=== PATIENT | female | born 1975 | race Two or more races ===

== ENCOUNTER 2016-09-05 14:21 | Emergency (ER) | payer OTHER ==
[~2016-09-05] VITALS: Ht 152.4 cm; Wt 45.4 kg
[~2016-09-05 14:21] MED LIST: ABILIFY2 MG ORAL; DIFLUCAN100 MG ORAL; DIFLUCAN150 MG PO; DILANTIN100 MG ORAL; FLAGYL500 MG ORAL; LORAZEPAM0.5 MG ORAL; METRONIDAZOLE500 MG ORAL
[2016-09-05 15:00] VITALS: BP 114/76
[2016-09-05 15:07] LABS: APPEARANCE,URINE CLEAR; KETONES,URINE NEGATIVE (NEGATIVE); LEUKOCYTE ESTERASE ,URINE 2+ (NEGATIVE); NITRITE,URINE NEGATIVE (NEGATIVE); PH,URINE 6 (4.5-8.0); PROTEIN,URINE 1+ (NEGATIVE); UROBILINOGEN,URINE NORMAL MG/DL (0.0-1.0)
[2016-09-05 15:15] LABS: BACTERIA,URINE FEW /HPF; MUCUS,URINE FEW /LPF (NONE/OCC); RBC,URINE 0-2 /HPF (0 - 2); SQUAMOUS EPITHELIAL CELL,UR FEW /LPF (NONE/OCC)
[2016-09-05] MEDS ORDERED: NITROFURANTOIN100 M2 ORAL (15:24)
[2016-09-05 15:30] VITALS: BP 114/76
--- NOTE | 2016-09-05 18:24 | Emergency Room Report ---
History of Present Illness General Chief Complaint: Female Urogenital Problems Source: Patient Present Illness HPI The patient is a 40-year-old female presenting with dysuria, increased urinary frequency, and white discharge which began one week prior. Patient states the pain is a 10 out of 10 burning which occurs only with urination. The patient denies any abdominal or flank pain. The patient denies other symptoms including nausea, vomiting, fever, chills, hematuria, diarrhea, constipation Allergies: Coded Allergies: MORPHINE (Verified Allergy, Unknown, 10/30/12) CODEINE (Verified Adverse Reaction, Mild, GI UPSET, 10/30/12) Patient History Past Medical History: see triage record Pertinent Family History: none Last Menstrual Period: 3-1 Now: No Reviewed Nursing Documentation: PMH: Agreed, PSxH: Agreed Nursing Documentation-PMH Past Medical History: No History, Except For Hx Asthma: Yes Hx Seizures: Yes Review of Systems All Other Systems: negative except mentioned in HPI Physical Exam Vital Signs Date Time Temp Pulse Resp B/P Pulse Ox O2 Delivery O2 Flow Rate FiO2 09/05/16 14:28 98.1 107 18 114/76 98 Room Air Sp02 EP Interpretation: reviewed, normal General Appearance: no apparent distress, alert, GCS 15, non-toxic Head: normocephalic, atraumatic Eyes: bilateral eye PERRL, bilateral eye normal inspection Gastrointestinal: normal bowel sounds, non tender, soft, non-distended, no guarding, no rebound Rectal: deferred Genitourinary: normal inspection, no CVA tenderness Musculoskeletal: back normal, gait/station normal, normal range of motion, non- tender, calf tenderness Neurologic: alert, oriented x3, responsive, motor strength/tone normal, sensory intact, speech normal Psychiatric: judgement/insight normal, memory normal, mood/affect normal, no suicidal/homicidal ideation Reflexes: 3+ bicep (R), 3+ bicep (L), 3+ tricep (R), 3+ tricep (L), 3+ knee (R) , 3+ knee (L) Skin: normal color, no rash, warm/dry, well hydrated Medical Decision Making PA Attestation Dr. Rooney is my supervising physician. Patient management was discussed with my supervising physician Diagnostic Impression: Primary Impression: Urinary tract infection ER Course The patient is a 40-year-old female presenting with dysuria, increased urinary frequency, and white discharge Differential diagnosis considered but not limited to: UTI, vaginitis, pyelonephritis, pyelonephrosis, PID, ectopic PE: afebrile. NAD. Abdomen: Normal appearance. Non distended. No ecchymosis. Normal BS. Non TTP. No McBurney point tenderness. No guarding. No CVA tenderness UA: There are 5-10 white blood cells with few bacteria. Negative Due to the patient's symptoms and urinalysis, patient will be treated with UTI with a prescription for Macrobid and will follow up with PMD. ER precautions are given Laboratory Tests Test 09/05/16 14:51 Urine Color Pale yellow Urine Appearance Clear Urine pH 6 (4.5-8.0) Urine Specific [place] 1.020 (1.005-1.035) Urine Protein 1+ (NEGATIVE) H Urine Glucose (UA) Negative (NEGATIVE) Urine Ketones Negative (NEGATIVE) Urine Occult Blood Negative (NEGATIVE) Urine Nitrite Negative (NEGATIVE) Urine Bilirubin Negative (NEGATIVE) Urine Urobilinogen Normal MG/DL (0.0-1.0) Urine Leukocyte Esterase 2+ (NEGATIVE) H Urine RBC 0-2 /HPF (0 - 2) Urine WBC 5-10 /HPF (0 - 2) H Urine Squamous Epithelial Cells Few /LPF (NONE/OCC) Urine Bacteria Few /HPF (NONE) Urine Mucus Few /LPF (NONE/OCC) H Urine HCG, Qualitative Negative Lab Results Impression There are 5-10 white blood cells with few bacteria. Negative Last Vital Signs Date Time Temp Pulse Resp B/P Pulse Ox O2 Delivery O2 Flow Rate FiO2 09/05/16 14:28 98.1 107 18 114/76 98 Room Air Status: improved Disposition: HOME, SELF-CARE Condition: Improved Scripts Nitrofurantoin Monohyd/M-Cryst* (MACROBID 100 MG*) 100 Mg Capsule 100 MG ORAL EVERY 12 HOURS, #14 CAP Prov: BOZENA LONG 09/05/16 Patient Instructions: Urinary Tract Infection Additional Instructions: I discussed my findings with the patient. All questions and concerns have been answered. Treatment and medication compliance have been addressed. I advised the patient that they need to follow up with PMD in 3-5 days. Return to ED if symptoms worsen, new symptoms arise, or if needed for any reason. Patient verbalized understanding of discharge instructions. BOZENA LONG Sep 05, 2016 18:24
== END 2016-09-05 15:30 | disposition home or self-care (01) ==
LOC: EMR 14:35
DX: N39.0 Urinary tract infection, site not specified (principal); J45.909 Unspecified asthma, uncomplicated
CPT/HCPCS: 81003; 81025; 99283

== ENCOUNTER 2017-01-17 15:35 | Emergency (ER) | payer OTHER ==
[~2017-01-17] VITALS: Ht 152.4 cm; Wt 45.4 kg
[~2017-01-17 15:35] MED LIST changes: +NITROFURANTOIN100 M2 ORAL
[2017-01-17 16:44] LABS: APPEARANCE,URINE CLEAR; KETONES,URINE 3+ (NEGATIVE); LEUKOCYTE ESTERASE ,URINE 1+ (NEGATIVE); NITRITE,URINE NEGATIVE (NEGATIVE); PH,URINE 6 (4.5-8.0); PROTEIN,URINE 2+ (NEGATIVE); UROBILINOGEN,URINE 1 MG/DL (0.0-1.0)
[2017-01-17 16:58] LABS: BACTERIA,URINE FEW /HPF; RBC,URINE 0-2 /HPF (0 - 2); SQUAMOUS EPITHELIAL CELL,UR FEW /LPF (NONE/OCC)
[2017-01-17 16:59] LABS: MUCUS,URINE FEW /LPF (NONE/OCC)
[2017-01-17 17:17] VITALS: BP 110/76
[2017-01-17] MEDS ORDERED: METRONIDAZOLE500 MG ORAL (17:32)
--- NOTE | 2017-01-17 17:32 | Emergency Room Report ---
History of Present Illness General Chief Complaint: Female Urogenital Problems Present Illness HPI 41-year-old female presents to the emergency department complaining of vaginal discharge with foul odor times one month patient also reports new onset dysuria x3 days. Patient denies fevers or chills. Patient reports recent unprotected intercourse and multiple partners. Patient denies abdominal pain, joint pain or flulike symptoms. Denies rashes or lesions. Denies swollen tender lymph nodes Denies CP, Palpitations, LOC, AMS, dizziness, Changes in Vision, Sensation , paresthesias, or a sudden severe headache. Allergies: Coded Allergies: MORPHINE (Verified Allergy, Unknown, 10/30/12) CODEINE (Verified Adverse Reaction, Mild, GI UPSET, 10/30/12) Patient History Past Medical History: see triage record Past Surgical History: none Pertinent Family History: none Now: No Immunizations: UTD Reviewed Nursing Documentation: PMH: Agreed, PSxH: Agreed Nursing Documentation-PMH Hx Asthma: Yes Hx Seizures: Yes Review of Systems All Other Systems: negative except mentioned in HPI Physical Exam Vital Signs Date Time Temp Pulse Resp B/P Pulse Ox O2 Delivery O2 Flow Rate FiO2 01/17/17 15:51 98.1 122 20 110/76 100 Room Air Sp02 EP Interpretation: reviewed, normal General Appearance: no apparent distress, alert, GCS 15, non-toxic Head: normocephalic, atraumatic Eyes: bilateral eye PERRL, bilateral eye normal inspection ENT: hearing grossly normal, normal pharynx, no angioedema, normal voice Neck: full range of motion, supple/symm/no masses Respiratory: lungs clear, normal breath sounds, speaking full sentences Cardiovascular #1: regular rate, rhythm, no edema Gastrointestinal: normal bowel sounds, non tender, soft, no guarding, no rebound Rectal: deferred Genitourinary: normal inspection, no CVA tenderness, cervix normal, os closed, other - no CMT, adnexal normal. Musculoskeletal: back normal, gait/station normal, normal range of motion, non- tender Neurologic: alert, oriented x3, responsive, motor strength/tone normal, sensory intact, speech normal Psychiatric: judgement/insight normal, memory normal, mood/affect normal Skin: normal color, no rash, warm/dry, well hydrated Lymphatic: no adenopathy Medical Decision Making PA Attestation Dr. Ordaz is my supervising Physician whom patient management has been discussed with. Diagnostic Impression: Primary Impression: Bacterial vaginosis ER Course 41-year-old female presents to the emergency department complaining of vaginal discharge with foul odor times one month patient also reports new onset dysuria x3 days. Patient denies fevers or chills. Patient reports recent unprotected intercourse and multiple partners. Patient denies abdominal pain, joint pain or flulike symptoms. Denies rashes or lesions. Denies swollen tender lymph nodes Denies CP, Palpitations, LOC, AMS, dizziness, Changes in Vision, Sensation , paresthesias, or a sudden severe headache. Ddx considered but are not limited to UTi , STI, G & C, trichomonas, Vaginitis , cervicitis, bartholins gland cyst or cellulitis. Vital signs: are WNL, pt. is afebrile H&PE are most consistent with possible UTI, and vaginal DC. ORDERS: - UA: no evidence of infection - WET MOUNT PREP: bacteria noted, and clue cells, no trich or yeast. ED INTERVENTIONS: -250mg Rocephin IM DISCHARGE: At this time pt. is stable for d/c to home. Will provide printed patient care instructions, and any necessary prescriptions. Care plan and follow up instructions have been discussed with the patient prior to discharge. Labs Test 01/17/17 16:00 Urine Color Yellow Urine Appearance Clear Urine pH 6 (4.5-8.0) Urine Specific [place] 1.020 (1.005-1.035) Urine Protein 2+ (NEGATIVE) Urine Glucose (UA) Negative (NEGATIVE) Urine Ketones 3+ (NEGATIVE) Urine Occult Blood Negative (NEGATIVE) Urine Nitrite Negative (NEGATIVE) Urine Bilirubin Negative (NEGATIVE) Urine Urobilinogen 1 MG/DL (0.0-1.0) Urine Leukocyte Esterase 1+ (NEGATIVE) Urine RBC 0-2 /HPF (0 - 2) Urine WBC 2-4 /HPF (0 - 2) Urine Squamous Epithelial Cells Few /LPF (NONE/OCC) Urine Bacteria Few /HPF (NONE) Urine Mucus Few /LPF (NONE/OCC) Urine HCG, Qualitative Negative Last Vital Signs Date Time Temp Pulse Resp B/P Pulse Ox O2 Delivery O2 Flow Rate FiO2 01/17/17 17:17 98.1 71 20 110/76 100 Room Air Disposition: HOME, SELF-CARE Condition: Stable Scripts Doxycycline Hyclate* (VIBRAMYCIN*) 100 Mg Capsule 100 MG ORAL EVERY 12 HOURS for 7 Days, #14 CAP 0 Refills Prov: Vy Patterson 01/17/17 Metronidazole* (FLAGYL*) 500 Mg Tablet 500 MG ORAL BID for 7 Days, #14 TAB 0 Refills Prov: Vy Patterson 01/17/17 [facility]errals[facility] (PCP) Patient Instructions: Bacterial Vaginosis, [id number] Additional Instructions: Take medications as directed. Follow up with a Primary Care Provider in 3-5 days, even if your symptoms have resolved. --Please review list of primary care clinics, if you do not already have a primary care provider Return sooner to ED if new symptoms occur, or current symptoms become worse. Do not drink alcohol while taking FLAGYL as this will cause a serious skin reaction. - Please note that this Emergency Department Report was dictated using [employer] applications engineer technology software, occasionally this can lead to erroneous entry secondary to interpretation by the dictation equipment. Vy Patterson Jan 17, 2017 17:32
[2017-01-17 17:49] VITALS: BP 110/76
[2017-01-17] MEDS ORDERED: VIBRAMYCIN100 MG ORAL (21:42)
== END 2017-01-17 17:50 | disposition home or self-care (01) ==
LOC: EMR 16:15
DX: N76.0 Acute vaginitis (principal); J45.909 Unspecified asthma, uncomplicated; Z88.6 Allergy status to analgesic agent
CPT/HCPCS: 81003; 81025; 87210; 96372; 99284; J0696

== ENCOUNTER 2018-01-26 19:25 | Emergency (ER) | payer OTHER ==
[~2018-01-26] VITALS: Ht 152.4 cm; Wt 54.0 kg
[~2018-01-26 19:25] MED LIST changes: +VIBRAMYCIN100 MG ORAL
[2018-01-26 19:30] VITALS: BP 138/74
[2018-01-26 19:52] LABS: APPEARANCE,URINE CLEAR; BILIRUBIN, URINE NEGATIVE (NEGATIVE); COLOR,URINE PALE YELLOW; GLUCOSE, URINE (UA) NEGATIVE (NEGATIVE); KETONES,URINE NEGATIVE (NEGATIVE); LEUKOCYTE ESTERASE ,URINE 1+ (NEGATIVE); NITRITE,URINE NEGATIVE (NEGATIVE); PH,URINE 7 (4.5-8.0); PROTEIN,URINE NEGATIVE (NEGATIVE); UROBILINOGEN,URINE NORMAL MG/DL (0.0-1.0)
[2018-01-26] MEDS ORDERED: METRONIDAZOLE500 MG ORAL (20:13)
--- NOTE | 2018-01-26 20:13 | Emergency Room Report ---
History of Present Illness General Chief Complaint: Vaginal Present Illness HPI Pt. presents to the ED c/o vaginal irritation/ discomfort x 1 week. Pt. reports just finishing medication recently that cleared it up , however pt. left toilet paper up inside the vaginal vault for several days and forgot about it, and symptoms returned. Denies abdominal pain, N/V/F/C. denies hematuria or frequency. pt. denies .denies swollen tender lymph nodes. Denies external vaginal lesions. Denies . Allergies: Coded Allergies: MORPHINE (Verified Allergy, Unknown, 10/30/12) CODEINE (Verified Adverse Reaction, Mild, GI UPSET, 10/30/12) Patient History Past Medical History: see triage record Past Surgical History: none Pertinent Family History: none Last Menstrual Period: January 23 Now: No Reviewed Nursing Documentation: PMH: Agreed; PSxH: Agreed Nursing Documentation-PMH Hx Asthma: Yes Hx Seizures: Yes Review of Systems All Other Systems: negative except mentioned in HPI Physical Exam Vital Signs Date Time Temp Pulse Resp B/P (MAP) Pulse Ox O2 Delivery O2 Flow Rate FiO2 01/26/18 19:33 98.4 97 18 108/70 98 Room Air 98.4 Sp02 EP Interpretation: reviewed, normal General Appearance: no apparent distress, alert, GCS 15, non-toxic Head: normocephalic, atraumatic Eyes: bilateral eye normal inspection, bilateral eye PERRL ENT: hearing grossly normal, normal voice Neck: full range of motion Respiratory: chest non-tender, lungs clear, normal breath sounds, speaking full sentences Cardiovascular #1: regular rate, rhythm Gastrointestinal: normal bowel sounds, non tender, soft Rectal: deferred Genitourinary: normal inspection, no CVA tenderness, adnexa normal, cervix normal, ext genitalia/vag normal, other - no CMT, thick white vaginal d/c with odor in vaginal vault. no evidence of retained fb. Musculoskeletal: back normal, gait/station normal, normal range of motion, non- tender Neurologic: alert, oriented x3, responsive, motor strength/tone normal, sensory intact, speech normal, grossly normal Psychiatric: judgement/insight normal Skin: normal color, no rash, warm/dry, well hydrated Lymphatic: no adenopathy Medical Decision Making PA Attestation Dr. Cole is my supervising Physician whom patient management has been discussed with. Diagnostic Impression: Primary Impression: Bacterial vaginosis ER Course Pt. presents to the ED c/o vaginal irritation/ discomfort x 1 week. Pt. reports just finishing medication recently that cleared it up , however pt. left toilet paper up inside the vaginal vault for several days and forgot about it, and symptoms returned. Denies abdominal pain, N/V/F/C. denies hematuria or frequency. pt. denies .denies swollen tender lymph nodes. Denies external vaginal lesions. Denies . Ddx considered but are not limited to UTi , Pyelo, STI, Stone, Cystitis, vaginal laceration, vaginitis. Vital signs: are WNL, pt. is afebrile H& PE are most consistent with: Vaginitis ORDERS: - UA labs are attached : unremarkable - Wet [place] : no yeast, no trich. MODERATE CLUE CELLS ED INTERVENTIONS: -none required at this time. DISCHARGE: At this time pt. is stable for d/c to home. Will provide printed patient care instructions, and any necessary prescriptions. Care plan and follow up instructions have been discussed with the patient prior to discharge. discussed with the patient prior to discharge. Labs Test 01/26/18 19:39 Urine Color Pale yellow Urine Appearance Clear Urine pH 7 (4.5-8.0) Urine Specific [place] 1.005 (1.005-1.035) Urine Protein Negative (NEGATIVE) Urine Glucose (UA) Negative (NEGATIVE) Urine Ketones Negative (NEGATIVE) Urine Occult Blood 1+ (NEGATIVE) Urine Nitrite Negative (NEGATIVE) Urine Bilirubin Negative (NEGATIVE) Urine Urobilinogen Normal MG/DL (0.0-1.0) Urine Leukocyte Esterase 1+ (NEGATIVE) Urine RBC 0-2 /HPF (0 - 2) Urine WBC 0-2 /HPF (0 - 2) Urine Squamous Epithelial Cells Few /LPF (NONE/OCC) Urine Bacteria Moderate /HPF (NONE) Urine HCG, Qualitative Negative (NEGATIVE) Last Vital Signs Date Time Temp Pulse Resp B/P (MAP) Pulse Ox O2 Delivery O2 Flow Rate FiO2 01/26/18 19:33 98.4 97 18 108/70 98 Room Air 98.4 Disposition: HOME, SELF-CARE Condition: Stable Scripts Metronidazole* (FLAGYL*) 500 Mg Tablet 500 MG ORAL BID for 7 Days, #14 TAB 0 Refills Prov: Vy Patterson 01/26/18 Referrals: [facility] (PCP) Patient Instructions: Bacterial Vaginosis Additional Instructions: Take medications as directed. Follow up with a GYNOCOLOGIST within 3-5 days, even if your symptoms have resolved. Return sooner to ED if new symptoms occur, or current symptoms become worse. - Please note that this Emergency Department Report was dictated using [employer] merchant technology software, occasionally this can lead to erroneous entry secondary to interpretation by the dictation equipment. Vy Patterson Jan 26, 2018 20:13
[2018-01-26 20:15] VITALS: BP 108/70
== END 2018-01-26 20:15 | disposition home or self-care (01) ==
LOC: EMR 19:53
DX: N76.0 Acute vaginitis (principal); J45.909 Unspecified asthma, uncomplicated
CPT/HCPCS: 81003; 81025; 87086; 87210; 99283

== ENCOUNTER 2018-02-26 03:03 | Emergency (ER) | payer OTHER ==
[~2018-02-26] VITALS: Ht 160 cm; Wt 54.4 kg
[2018-02-26 03:15] VITALS: BP 112/68
--- NOTE | 2018-02-26 03:15 | Emergency Room Report ---
History of Present Illness General Chief Complaint: To Be Triaged Source: Patient Present Illness HPI Is a 42-year-old female with no significant past medical history except for anemia. She presents with chief complaint of bedbugs bite. She said she is itching all over. She said she's also bedbugs while staying at a hotel in [place]. She said she took a picture but said she deleted. She is itching to her back and leg. No fever chills but no nausea no vomiting. His been ongoing for last couple days. Also thing that she may be . Denies any other complaint. Allergies: Coded Allergies: MORPHINE (Verified Allergy, Unknown, 10/30/12) CODEINE (Verified Adverse Reaction, Mild, GI UPSET, 10/30/12) Patient History Past Medical History: see triage record, old chart reviewed Past Surgical History: other Pertinent Family History: none Social History: Reports: smoking Now: No Immunizations: other Reviewed Nursing Documentation: PMH: Agreed; PSxH: Agreed Nursing Documentation-PMH Hx Asthma: Yes Hx Seizures: Yes Review of Systems Eye: Denies: eye pain, blurred vision ENT: Denies: ear pain, nose congestion, throat swelling Respiratory: Denies: cough, shortness of breath Cardiovascular: Denies: chest pain, palpitations Gastrointestinal: Denies: abdominal pain, diarrhea, nausea, vomiting Musculoskeletal: Denies: back pain, joint pain Skin: Denies: rash Neurological: Denies: headache, numbness Endocrine: Denies: increased thirst, increased urine Hematologic/Lymphatic: Denies: easy bruising All Other Systems: negative except mentioned in HPI Physical Exam vitals normal Sp02 EP Interpretation: reviewed, normal General Appearance: well appearing, no apparent distress, alert Head: normocephalic, atraumatic Eyes: bilateral eye PERRL, bilateral eye EOMI ENT: hearing grossly normal, normal pharynx Neck: full range of motion, supple, no meningismus Respiratory: chest non-tender, lungs clear, normal breath sounds Cardiovascular #1: regular rate, rhythm, no murmur Gastrointestinal: normal bowel sounds, non tender, no mass, no organomegaly, no bruit, non-distended Musculoskeletal: back normal, gait/station normal, normal range of motion Neurologic: alert, oriented x3 Psychiatric: mood/affect normal Skin: warm/dry, other - I see no rash to indicate bedbug bites Medical Decision Making Diagnostic Impression: Primary Impression: Methamphetamine abuse Additional Impressions: Delusions of parasitosis UTI (urinary tract infection) Qualified Codes: N30.00 - Acute cystitis without hematuria ER Course Patient presents with chief complaint of bedbugs. 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 She is comfortable. No evidence of any bacterial infection other than her urine. We'll discharge home. Not . Status: improved Disposition: HOME, SELF-CARE Condition: Stable Scripts Nitrofurantoin Monohyd/M-Cryst (Nitrofurantoin Dent-Mcr 100 mg) 100 Mg Capsule 100 MG ORAL Q12H, #14 CAP Prov: DENNIS HOFF M.D. 02/26/18 Additional Instructions: Stop using drugs. Go to rehabilitation. Follow-up with your doctor in 7 days. Return if worse. DENNIS HOFF M.D. Feb 26, 2018 03:15
[2018-02-26 03:26] LABS: APPEARANCE,URINE CLEAR; BILIRUBIN, URINE NEGATIVE (NEGATIVE); COLOR,URINE PALE YELLOW; GLUCOSE, URINE (UA) NEGATIVE (NEGATIVE); KETONES,URINE NEGATIVE (NEGATIVE); LEUKOCYTE ESTERASE ,URINE 1+ (NEGATIVE); NITRITE,URINE NEGATIVE (NEGATIVE); PH,URINE 6 (4.5-8.0); PROTEIN,URINE NEGATIVE (NEGATIVE); UROBILINOGEN,URINE NORMAL MG/DL (0.0-1.0)
[2018-02-26] MEDS ORDERED: MACROBID100 MG ORAL (03:42)
[2018-02-26 03:47] VITALS: BP 112/68
== END 2018-02-26 03:53 | disposition home or self-care (01) ==
LOC: EMR 03:17
DX: F22 Delusional disorders (principal); N39.0 Urinary tract infection, site not specified
CPT/HCPCS: 80307; 81003; 81025; 99283

== ENCOUNTER 2018-11-14 14:51 | Emergency (ER) | payer MEDICAID, OTHER ==
[~2018-11-14] VITALS: Ht 152.4 cm; Wt 54.9 kg
[~2018-11-14 14:51] MED LIST changes: +MACROBID100 MG ORAL
--- NOTE | 2018-11-14 14:55 | NUR ---
ED Nurse Note: pt refused to be triage and went to admiting dept.
--- NOTE | 2018-11-14 15:44 | NUR ---
ED Nurse Note: received a patient in the room.
--- NOTE | 2018-11-14 15:44 | NUR ---
ED Nurse Note: Patient walked into ED c/o abdominal pain and headache for 1 day. denies n/v. patient reported use of meth and drinking 2 hogan ago. paitent is alert awake x4 ambulatory breathing unlabored and even.
--- NOTE | 2018-11-14 15:50 | NUR ---
ED Nurse Note: urine sent to lab
[2018-11-14 16:00] VITALS: BP 149/99
[2018-11-14] MEDS ORDERED: Lidocaine 2% Visc 15ml soln ORAL ONE (16:00)
[2018-11-14] MEDS ORDERED: Mylanta II UD 30ml ORAL ONE (16:00)
[2018-11-14] MEDS ORDERED: Dicyclomine HCl 10mg/5ml oral soln ORAL ONE (16:00)
[2018-11-14] MEDS ORDERED: Acetaminophen 500mg (ES) tab ORAL ONE (16:00)
[2018-11-14 16:04] LABS: APPEARANCE,URINE CLEAR; BILIRUBIN, URINE NEGATIVE (NEGATIVE); COLOR,URINE PALE YELLOW; GLUCOSE, URINE (UA) NEGATIVE (NEGATIVE); KETONES,URINE NEGATIVE (NEGATIVE); LEUKOCYTE ESTERASE ,URINE NEGATIVE (NEGATIVE); NITRITE,URINE NEGATIVE (NEGATIVE); PH,URINE 7 (4.5-8.0); PROTEIN,URINE NEGATIVE (NEGATIVE); UROBILINOGEN,URINE NORMAL MG/DL (0.0-1.0)
[2018-11-14] MEDS ORDERED: RANITIDINE HCL150 MG ORAL (16:24)
[2018-11-14] MEDS ORDERED: TYLENOL EXTRA500 MG ORAL (16:24)
[2018-11-14 16:30] VITALS: BP 149/99
--- NOTE | 2018-11-14 16:30 | NUR ---
ER DISCHARGE NOTE: Patient is cleared to be discharged per ERMD DR BHARDWAJ, pt is aox4, on room air, with stable vital signs. pt was given dc and prescription instructions, pt was able to verbalize understanding, pt id band removed without complications. pt is able to ambulate with steady gait. pt took all belongings.
--- NOTE | 2018-11-16 08:07 | Emergency Room Report ---
History of Present Illness General Chief Complaint: Headache Source: Patient Present Illness HPI 43-year-old female presents ED for evaluation. Patient complaining of abdominal pain and headache 1 day. States pain is epigastric, burning, 5 out of 10, nonradiating. States headache is frontal, dull, throbbing, 7 out of 10. Denies photophobia or blurry vision. Denies nausea or vomiting. Denies neck stiffness. Denies any diarrhea. States that she used meth 2 days ago. No other aggravating relieving factors. Denies any other associated symptoms Allergies: Coded Allergies: CODEINE (Verified Adverse Reaction, Mild, GI UPSET, 10/30/12) Patient History Past Medical History: seizures Past Surgical History: none Pertinent Family History: none Social History: Reports: drug use; Denies: smoking, alcohol use Last Menstrual Period: 10/14/18 Now: No Immunizations: UTD Reviewed Nursing Documentation: PMH: Agreed; PSxH: Agreed Nursing Documentation-PMH Past Medical History: No History, Except For Hx Hypertension: Yes Hx Asthma: Yes Hx Seizures: Yes Review of Systems All Other Systems: negative except mentioned in HPI Physical Exam Vital Signs Date Time Temp Pulse Resp B/P (MAP) Pulse Ox O2 Delivery O2 Flow Rate FiO2 11/14/18 15:35 98.1 72 18 99 Room Air 11/14/18 16:00 149/99 Sp02 EP Interpretation: reviewed, normal General Appearance: no apparent distress, alert, GCS 15, non-toxic Head: normocephalic, atraumatic Eyes: bilateral eye normal inspection, bilateral eye PERRL ENT: hearing grossly normal, normal pharynx, no angioedema, normal voice Neck: full range of motion, supple, no meningismus, supple/symm/no masses Respiratory: chest non-tender, lungs clear, normal breath sounds, speaking full sentences Cardiovascular #1: regular rate, rhythm, no edema Cardiovascular #2: 2+ carotid (R), 2+ carotid (L), 2+ radial (R), 2+ radial (L) , 2+ dorsalis pedis (R), 2+ dorsalis pedis (L) Gastrointestinal: normal bowel sounds, soft, non-distended, no guarding, no rebound, tenderness - epigastric Rectal: deferred Genitourinary: normal inspection, no CVA tenderness Musculoskeletal: back normal, gait/station normal, normal range of motion, non- tender Neurologic: alert, oriented x3, responsive, motor strength/tone normal, sensory intact, speech normal Psychiatric: judgement/insight normal, memory normal, mood/affect normal, no suicidal/homicidal ideation Reflexes: 3+ bicep (R), 3+ bicep (L), 3+ tricep (R), 3+ tricep (L), 3+ knee (R) , 3+ knee (L) Skin: normal color, no rash, warm/dry, well hydrated Lymphatic: no adenopathy Medical Decision Making Diagnostic Impression: Primary Impression: Methamphetamine abuse Additional Impressions: Headache Qualified Codes: R51 - Headache GERD (gastroesophageal reflux disease) Qualified Codes: K21.9 - Gastro-esophageal reflux disease without esophagitis ER Course Hospital Course 43-year-old F presents to ED with epigastric pain with headache differential diagnosis: gastritis, UTI, substance abuse Clinical course Patient placed on stretcher. On auto body service mechanic. After initial history, physical exam reveals a middle-aged female in no acute distress. Patient has no nuchal rigidity. No focal neurological deficits. Abdomen soft with no guarding or rebound. Subjective tenderness in the epigastric region I ordered UA, Reglan, Tylenol, GI cocktail, Pepcid UA unremarkable discussed findings with patient. On reassessment symptoms improved. Caution on use of methamphetamines. We'll discharged to home with medications. We'll provide referrals I feel this is a highly complex case requiring extensive working including EKG/ Rhythm strip, Xray/CT/US, Blood/urine lab work, repeat exams while in ED, and administration of strong opiates/narcotics for pain control, admission to hospital or close patient follow up. Diagnosis - methamphetamine abuse, headache, GERD Stable and discharged to home with prescriptions for Tylenol, Zantac. Followup with PMD. Return to ED if symptoms recur or worsen Labs Test 11/14/18 15:47 Urine Color Pale yellow Urine Appearance Clear Urine pH 7 (4.5-8.0) Urine Specific [place] 1.015 (1.005-1.035) Urine Protein Negative (NEGATIVE) Urine Glucose (UA) Negative (NEGATIVE) Urine Ketones Negative (NEGATIVE) Urine Blood Negative (NEGATIVE) Urine Nitrite Negative (NEGATIVE) Urine Bilirubin Negative (NEGATIVE) Urine Urobilinogen Normal MG/DL (0.0-1.0) Urine Leukocyte Esterase Negative (NEGATIVE) Urine HCG, Qualitative Negative (NEGATIVE) Last Vital Signs Date Time Temp Pulse Resp B/P (MAP) Pulse Ox O2 Delivery O2 Flow Rate FiO2 11/14/18 16:31 98.1 11/14/18 16:30 72 18 149/99 99 Room Air Status: improved Disposition: HOME, SELF-CARE Condition: Stable Scripts Acetaminophen* (TYLENOL EXTRA STRENGTH*) 500 Mg Tablet 500 MG ORAL Q8H PRN for Prn Headache/Temp > 101, #30 TAB 0 Refills Prov: Fredy Daniel MD 11/14/18 Ranitidine Hcl* (ZANTAC*) 150 Mg Tablet 150 MG ORAL TWICE A DAY, #30 TAB Prov: Fredy Daniel MD 11/14/18 Referrals: [facility] ([facility]) [facility] Patient Instructions: Gastroesophageal Reflux Disease, Adult Fredy Daniel MD November 16, 2018 08:07
== END 2018-11-14 16:30 | disposition home or self-care (01) ==
LOC: EMR 15:49
DX: F15.10 Other stimulant abuse, uncomplicated (principal); R51 Headache; K21.9 Gastro-esophageal reflux disease without esophagitis; Z88.6 Allergy status to analgesic agent; G40.909 Epilepsy, unspecified, not intractable, without status epilepticus
CPT/HCPCS: 81003; 81025; 99283

== ENCOUNTER 2020-09-02 13:54 | Emergency (ER) | payer MEDICAID ==
[~2020-09-02 13:54] MED LIST changes: +RANITIDINE HCL150 MG ORAL; +TYLENOL EXTRA500 MG ORAL
--- NOTE | 2020-09-02 14:57 | NUR ---
called no answer
--- NOTE | 2020-09-02 15:07 | Emergency Room Report ---
History of Present Illness General Chief Complaint: To Be Triaged Present Illness HPI This patient left prior to evaluation by medical provider. Allergies: Coded Allergies: CODEINE (Verified Adverse Reaction, Mild, GI UPSET, 10/30/12) Nursing Documentation-PMH Hx Hypertension: Yes Hx Asthma: Yes Hx Seizures: Yes Medical Decision Making PA Attestation Dr. Ruiz is my supervising Physician whom patient management has been discussed with. Diagnostic Impression: Primary Impression: Patient left without being seen ER Course This patient left prior to evaluation by medical provider. Disposition: LEFT W/OUT BEING SEEN Condition: Unknown Vy Patterson Sep 02, 2020 15:07
== END 2020-09-02 15:30 | disposition left against medical advice (07) ==
LOC: EMR 14:45
DX: Z53.21 Procedure and treatment not carried out due to patient leaving prior to being seen by health care provider (principal); Z88.6 Allergy status to analgesic agent; I10 Essential (primary) hypertension; G40.909 Epilepsy, unspecified, not intractable, without status epilepticus